=== PATIENT | female | born 1945 | race Caucasian/White ===

== ENCOUNTER 2017-09-11 08:32 | Observation (INO) ==
[2017-09-13 10:36] VITALS: BP_SYST 170; PULSE 65; RESP 20; O2SAT 95
== END 2017-09-11 15:47 | disposition home or self-care (01) ==
LOC: PHEDA 08:32 → INTOOBSV 14:53 → PHEDA 16:13
PROVIDERS: ADMIT Hospitalist; ATTEND Hospitalist